=== PATIENT | female | born 1935 | race Caucasian/White ===

== ENCOUNTER → 2020-05-23 | Outpatient (CLI) | payer OTHER | LOC: SJCVCIMAG 05-19 07:55 | PROVIDERS: ATTEND Family Medicine | DX: I08.3 Combined rheumatic disorders of mitral, aortic and tricuspid valves (principal); R94.31 Abnormal electrocardiogram [ECG] [EKG]; R00.0 Tachycardia, unspecified; Z79.899 Other long term (current) drug therapy ==

== ENCOUNTER 2020-07-17 14:07 | Inpatient (IN) | payer OTHER ==
[~2020-07-17] VITALS: Ht 160 cm; Wt 68.9 kg
[2020-07-17 14:20] VITALS: BP 115/55
[2020-07-17 15:02] LABS: ABSOLUTE NEUTROPHILS 3.3 thou/uL (1.4-8.2); BASOPHILS 0.3 % (0.0-2.0); EOSINOPHILS 1.9 % (0.0-3.0); HEMATOCRIT 22.2 % (37.0-47.0); HEMOGLOBIN 7.3 gm/dL (12.0-15.0); LYMPHOCYTES 15.2 % (24.0-44.0); MCH 30.4 pg (26.0-34.0); MCHC 32.9 g/dL (28.0-37.0); MCV 92.5 fL (80.0-100.0); MONOCYTES 3.5 % (1.0-8.0); PLATELET COUNT 187 thou/uL (150-400); POLYS 79.1 % (36.0-66.0); RDW 21.4 % (10.5-14.5); WBC 4.1 thou/uL (4.0-11.0)
[2020-07-17 15:15] LABS: ANION GAP 5 mmol/L (7-16); BUN 25 mg/dL (7-18); CALCIUM 7.8 mg/dL (8.5-10.1); CHLORIDE 94 mmol/L (98-107); CO2 25 mmol/L (21-32); CREATININE 0.9 mg/dL (0.6-1.0); GLUCOSE 151 mg/dL (74-106); POTASSIUM 5.1 mmol/L (3.5-5.1); SODIUM 124 mmol/L (136-145)
[2020-07-17 15:25] LABS: ALBUMIN 1.5 g/dL (3.4-5.0); SGOT 39 U/L (15-37); SGPT 28 U/L (30-65); TOTAL BILIRUBIN 0.7 mg/dL (0.2-1.0); TOTAL PROTEIN 4.7 g/dL (6.4-8.2); TROPONIN-I <0.06 ng/mL (<0.06)
[2020-07-17 15:59] LABS: ANISOCYTOSIS 2+; PLATELET ESTIMATE NORMAL
[2020-07-17 17:26] VITALS: BP 118/49
[2020-07-17 18:02] VITALS: BP 126/50
[2020-07-17] MEDS ORDERED: FUROSEMIDE 20 M20 MG PO ×2 (20:22)
[2020-07-17] MEDS ORDERED: POTASSIUM20 PO (20:23)
[2020-07-17] MEDS ORDERED: LOPERAMIDE2 MG PO (20:24)
[2020-07-17] MEDS ORDERED: ELIQUIS5 MG PO (20:24)
[2020-07-18 02:30] VITALS: BP 114/52; BP 115/53
--- NOTE | 2020-07-18 05:00 | NUR ---
Pt. was admitted to the unit earlier during the change of shift. She is alert and oriented. Admission assessment is completed. She does not want to sign any admission papers until her daughter accompanies her. No c/o pain. Blood is infusing without difficulty. Up to the bedside comode with assistance of one.
--- NOTE | 2020-07-18 06:57 | EKG ---
[address] [address] ELECTROCARDIOGRAM REPORT Name: KATY RUFFIN Room #: 455-P ADM IN .R.#: [id number] Admission: 07/17/20 Attend Phys: Charlie Feliciano MD Discharge: Date of : 39 Report #: [id number] [facility] ED Test Date: 2020-07-17 Test Time: 15:55:37 Pat Name: KATY RUFFIN Department: Room: [facility] Gender: F Clinic Lead: CYNTHIA GREENE : 1935 Requested By: Shahzad Brewster Order Number: [id number] MD: Zan Ahmadi Measurements Intervals [place] Rate: 101 P: 73 FL: 147 QRS: 15 QRSD: 90 T: 43 QT: 328 QTc: 426 Interpretive Statements Sinus tachycardia No previous ECG available for comparison Electronically Signed On 07-18-2020 6:57:05 CDT by Zan Ahmadi [email or web address] <ELECTRONICALLY SIGNED> By: Zan Ahmadi MD, [facility] 07/18/20 0657 1555 1555 Zan Ahmadi MD, FACC /EPI
[2020-07-18 07:33] LABS: HEMATOCRIT 25.1 % (37.0-47.0); HEMOGLOBIN 8.2 gm/dL (12.0-15.0)
[2020-07-18 08:00] VITALS: BP 124/57
--- NOTE | 2020-07-18 10:21 | NUR ---
WOUND CONSULT; THE PATIENT IS ALERT AND ORIENTED X 3. THE PATIENT JUST FINISHED BREAKFAST. THE PATIENT SUFFERS WITH S/S CONSITANT WITH CHRONIC VENOUS ISSUFICENCY BILATERALLY WHICH IS WORSE ON THE RIGHT. SKIN WARM TO TOUCH ON THE RIGHT. DRY TO HARD AND FLAKY SKIN CHANGES BILATERALLY BUT WORSE ON THE RIGHT. THERE IS A WOUND TO THE ANTERIOR ANKLE 2 X 2 X 0.1 9 (SKIN TEAR LIKE) RECOMMENDATIONS; 1-A SLILVER FOAM FOR NOW, SECURE WITH A LIKE TUBIGRIP. 2-CONSULT DR MO FIERRO OR WOUND MANAGEMENT. DISCUSSED WITH CYNTHIA
--- NOTE | 2020-07-18 13:45 | NUR ---
WOUND CARE F/U; REC'D V/O FROM DR MO FIERRO TO APPLY TUBIGRIPS BILATERALLY. I APPLIED SIZE F. THE PATIENT HAD NO COMPLAINTS. SAID, "THEY FEEL GOOD," APPLIED FROM TOES TO BELOW THE KNEE. STAFF PRESENT.
--- NOTE | 2020-07-18 14:42 | NUR ---
CM REVIEWED CHART AND SPOKE WITH CARE TEAM. CM ATTEMTPED PC TO PT'S ROOM WITH NO ANSWER. CM CALLED PT'S DTR. SHE INDICATED THAT PT RESIDES ALONE IN A RANCH STYLE HOUSE WITH 2 STEPS TO ENTER THROUGH THE GARAGE AND 3-4 STEPS WITH HR IN FRONT. SHE INDICATED THAT PT HAD BEEN INDEPEDNENT WITH GAIT AND ADLS LEGISLATORS. SHE INDICATED NO DME, RECENT HH HX, OR SKILLED PLACEMENT. DTR INDICATED THAT PLAN WOULD BE FOR PT TO RETURN HOME ONCE MEDICALLY STABLE. DTR INDICATED THAT THEY WOULD BE RECEPTIVE TO POST ACUTE CARE STAY IF NEEDED UPON DC. CM FOLLOWING REGARDING DC PLANNING.
--- NOTE | 2020-07-18 15:33 | NUR ---
I agree with the ROOFING APPRENTICE assessment.
--- NOTE | 2020-07-18 15:42 | NUR ---
Assumed pt care at 7am.Pt in and out of bed to bsc with assist.Assessment completed.vss.Dr Feliciano here and order noted.Pt hgb today was 8.2 and stable.Pt tolerated meds and diet.Wound care nurse here,tubal steward/stewardess smoke room stocking applied to bilateral legs.Gentamycin ointment applied to legs as ordered.Pt went for us bilat.lower extremities and returned to room some minutes later. Dtr at bs at present visiting.Will continue to monitor.
[2020-07-18 16:00] VITALS: BP 125/58
[2020-07-18 19:50] VITALS: BP 115/55
--- NOTE | 2020-07-19 03:46 | NUR ---
UP ADLIB TO THE BEDSIDE COMMODE.ACEWRAP TO BILATERAL LOWER EXTREMITIES.DENIES NEEDS AT THIS TIME.POC CONTINUED.
--- NOTE | 2020-07-19 07:34 | HC ---
[facility] [place] [address] CONSULTATION Name: KATY RUFFIN Room #: 455-P ADM IN .R.#: [id number] Admission: 07/17/20 Attend Phys: Charlie Feliciano MD Discharge: Date of : 39 Report #: [id number] THIS REPORT FOR: cc: Charlie Feliciano MD, Neal A. MD McKittrick, Richard James MD ~ REASON FOR CONSULTATION: History of pancreatic cancer. HISTORY OF PRESENT ILLNESS: The patient is an 85-year-old female that I met in 01/2020 or 02/2020. 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 The patient called us yesterday, she was having progressive weakness and leg swelling and redness of her legs. She was sent to the Emergency Room. Here, she was found to be hyponatremic, had redness of her legs and also was anemic with a hemoglobin of 7.3. She was admitted. Today, the patient denies any fevers, chills, nausea or vomiting, though her appetite is not good. No blood in her urine or stool. Does have some chronic leg swelling, it has been worse for the last several months. Quite a bit of redness on her shins with also some crustiness. Also has loose bowels several times a day. PHYSICAL EXAMINATION: GENERAL: The patient appears her stated age. She is alert and oriented x3. VITAL SIGNS: Blood pressure is 126/50, O2 sat of 98%, respirations 16, pulse 86, temperature is 98.7. HEENT: Lips, which she reports is dry. No mucosal lesions. LUNGS: Clear. HEART: Regular rate. LYMPHATICS: No enlarged lymph nodes in the supraclavicular, cervical, axillary or inguinal region. ABDOMEN: Without masses, nontender. CHEST: Has a port in place. EXTREMITIES: Does have the red rash with some slight crusting, some thickened skin on both shins going on to the back of her legs bilaterally, tops of her feet are also slightly swollen. She has been using crad-mek-jsjmrki lotion at home. Do have the redness and quite a bit of dry skin and some slight swelling and chronic skin changes of both lower extremities. MOOD: She is alert and pleasant, conversant. NEUROLOGIC: Speech and thought pattern normal. Moving extremities. LABORATORY DATA: Lab work here is notable for hemoglobin 8.2 after transfusion, white count 4.1. Yesterday, her sodium was 124, AST was 39. Chest x-ray shows some right basilar atelectasis or scarring. [address] [address] CONSULTATION Name: AUGUSTINLLUVIAKATY C Room #: 455-P ADM IN M.R.#: [id number] Admission: 07/17/20 Attend Phys: Charlie Feliciano MD Discharge: Date of : 39 Report #: [id number] MEDICATIONS: At this time in the hospital currently include ceftriaxone. Note that at home, she had been on Eliquis, Tylenol, hydrocodone, EMLA cream, Medrol Dosepak, and Zofran. PAST MEDICAL HISTORY: Notable for the stage 4 pancreatic cancer diagnosis, also history of left tibial DVT in early 04/2020, also history of pneumonectomy for a lung cancer in 1997, history of colon cancer in 1995 with liver mets resected, no known recurrent disease, history of oophorectomy. ASSESSMENT AND PLAN: 1. Stage 4 pancreatic cancer, responding to recent therapy with scan 3 weeks ago showing decrease in disease and improvement in tumor marker. 2. Bilateral leg rash. Gemzar has approximately 30% incidence of rash described as lipodermatosclerosis-like rash. Abraxane has incidence of rash of 10-30%. Also, could be stasis changes. We will consult wound care for their thoughts. If lipodermatosclerosis unresolved, use topical steroid and leg wraps. We will defer to them. 3. Anemia, status post transfusion, improvement in hemoglobin. 4. History of deep venous thrombosis and left tibial vein. Should probably restart Eliquis. 5. History of lung cancer in 1997, not recurrent. 6. History of colon cancer in 1995, not thought to be recurrent. We will follow with you. <ELECTRONICALLY SIGNED> By: Trav Skaggs MD 07/19/20 0734 0820 [id number] Trav Skaggs MD /nt
[2020-07-19 08:17] VITALS: BP 116/51
[2020-07-19 12:08] LABS: CALCIUM 7.9 mg/dL (8.5-10.1); CREATININE 0.8 mg/dL (0.6-1.0); POTASSIUM 4.7 mmol/L (3.5-5.1)
--- NOTE | 2020-07-19 12:43 | NUR ---
PT ON IV ROCEPHIN PT GETTING WOUND CARE. CM TO FOLLOW INDICATED WITH DC PLANNING.
--- NOTE | 2020-07-19 19:18 | NUR ---
Assumed pt care at 7am.Assessment completed.vss.Pt in bed for all meals. Good appetite noted.Dr Feliciano and Shawna here,order noted.Drsg change done to rt ankle as ordered and wound picture taken and placed in chart.Drt here to visit,updates given.Pt up to bsc with minimal assist,voided without difficulty.No verbal c/o.Pt encouraged to call for assist as needed.Report off to fran rn.
[2020-07-19 19:27] VITALS: BP 122/53
--- NOTE | 2020-07-20 02:01 | NUR ---
PT CARE ASSUMED WITH PT IN BED WATCHING TV.PT IS A/O X4.PT IS UP TO BSC AND UP WITH X1 ASSIST.PT DENIED PAIN ,NAUSEA AND VOMITING.IV PORTACATH ON RT CHEST.AMMOINIUM LACTACTE APPLIED ON LOWER LEGS FOR DRY SKIN .WILL CONTINUE TO MONITOR POC
[2020-07-20 08:45] VITALS: BP 130/64
[2020-07-20 11:47] VITALS: BP 130/64
--- NOTE | 2020-07-20 11:48 | NUR ---
PHYSICIAN VISITED THIS AM. HE INDICATED THAT PT WILL LIKELY BE MEDICALLY STABLE TO DC HOME TOMORROW WITH HOME HEALTH SERVICES. CM MET WITH PT AND DTR AT BEDSIDE THIS DAY AND THEY ARE AWARE AND AGREEABLE. PT ASKED THAT REFERRAL BE SENT TO [facility] FOR POSSIBLE SERVICES UPON DC. REFERRAL SENT. CM FOLLOWING REGARDING DC PLANNING. PT HAS FWW FOR HOME USE.
--- NOTE | 2020-07-20 11:56 | NUR ---
ASSUMED PT CARE THIS AM. PT VSS, A&OX4. PATIENT PLEASANT AND COOPERATIVE WITH STAFF. PATIENT ABLE TO MAKE NEEDS KNOWN. UP TO BEDSIDE COMMODE. WOUND CARE COMPLETED WHEN GIVING MORNING MEDS THIS AM. DRAINAGE ON CURRENT DRESSING WAS DRIED. PATIENT TOELRATED WOUND CARE WELL. REPORTING NO NAUSEA. REPORTS CHRONIC TINGLING IN FINGERTIPS AND BOTTOM OF FEET. MEDICATIONS GIVEN WITHOUT ISSUE. ON ROOM AIR. REPORTING NO PAIN. FALL PRECAUTIONS ARE IN PLACE.TELEMETRY DISCONTINUED PER PHYSICIAN ORDER.
--- NOTE | 2020-07-20 17:05 | NUR ---
FAXED REFERRAL TO [facility] SPOKE WITH INTAKE THEY CAN ACCEPT AT OR.
[2020-07-20 18:17] VITALS: BP 132/64
[2020-07-20 19:00] VITALS: BP 128/56
--- NOTE | 2020-07-21 02:36 | NUR ---
ASSUMED CARE OF PT AT 1900. PT IS A/O X4 AND IS UP AD DAIJA IN ROOM TO BSC NEEDED. ROOM AIR. VSS. C/O VAGINAL BLEEDING. NOTIFIED PHOTOCOPY OPERATOR. AM LABS ADDED TO PLAN OF CARE FOR THIS AM. DENIES ANY C/O PAIN OR DISCOMFORT AT THIS TIME. FALL PRECAUTIONS IN PLACE, CALL LIGHT IS WITHIN REACH.
[2020-07-21 06:28] LABS: HEMATOCRIT 27.5 % (37.0-47.0); HEMOGLOBIN 9.1 gm/dL (12.0-15.0); MCH 30.9 pg (26.0-34.0); MCV 93.9 fL (80.0-100.0); RBC 2.93 mil/uL (4.20-5.00); RDW 20.2 % (10.5-14.5); WBC 6.1 thou/uL (4.0-11.0)
[2020-07-21 07:53] VITALS: BP 119/60
--- NOTE | 2020-07-21 08:05 | HC ---
[facility] [place] [address] CONSULTATION Name: KATY RUFFIN Room #: 455-P ADM IN M.R.#: [id number] Admission: 07/17/20 Attend Phys: Charlie Feliciano MD Discharge: Date of : 37 Report #: [id number] THIS REPORT FOR: cc: Charlie Feliciano MD, Neal A. MD Althoff,Santhosh Zamora MD ~ DATE OF SERVICE: 07/18/2020 CHIEF COMPLAINT: Lower extremity dermatitis and ulcer of the right leg. HISTORY OF PRESENT ILLNESS: This is an 85-year-old female patient who was admitted through the Emergency Department with complaints of generalized swelling and weakness. She has been undergoing chemotherapy, which began in March. She developed swelling in her legs and subsequent dermatitis and ulceration that have been progressive almost since that time. The patient does complain of some mild discomfort and some pruritus. PAST MEDICAL HISTORY: Positive for history of colon cancer and pancreatic cancer, currently undergoing active treatment. MEDICATIONS: Include furosemide, potassium, Eliquis, loperamide. SOCIAL HISTORY: Negative for alcohol or tobacco use. FAMILY HISTORY: Noncontributory. ALLERGIES: No known drug allergies. REVIEW OF SYSTEMS: CONSTITUTIONAL: The patient complains of generalized weakness. Denies focal weakness. Denies fever, chills or weight loss. NEUROLOGICAL: The patient denies focal weakness, numbness or tingling. EYES: The patient denies visual changes, redness, or drainage. ENT: The patient denies earache, nasal drainage, sore throat. CARDIOVASCULAR: The patient denies chest pain or palpitations or diaphoresis. PULMONARY: The patient denies cough or shortness of breath. GASTROINTESTINAL: The patient denies nausea, vomiting, diarrhea or abdominal pain. ORTHOPEDIC: The patient complains of pain, swelling, itching and some discomfort to bilateral lower extremities with ulceration on the right anterior ankle. Other systems in a 14-point review of systems are negative. PHYSICAL EXAMINATION: VITAL SIGNS: At this time include temperature 36.7, pulse 94, respiratory rate [address] [address] CONSULTATION Name: KATY RUFFIN [place] Room #: 455-P [facility] IN ..#: [id number] Admission: 07/17/20 Attend Phys: Charlie Feliciano MD Discharge: Date of : 37 Report #: [id number], blood pressure 124/57. GENERAL: This is a chronically ill-appearing female patient who appears to be in minimal distress. HEENT: Head normocephalic. NECK: Supple. LUNGS: Clear. HEART: Regular rhythm. ABDOMEN: Soft and nontender. EXTREMITIES: Demonstrate 2+ edema bilaterally. She has easily palpable distal pulses. She has moderate venous stasis dermatitis on both lower legs and feet. She has an ulceration that appears to be venous like on the anterior portion of the right ankle that is mildly tender. There is moderate crusting and loose skin surrounding. NEUROLOGIC: The patient is alert and oriented and appropriate. LABORATORY STUDIES: Include a sodium of 124, potassium 5.1, chloride 94, CO2 of 25, BUN 25, creatinine 0.9, glucose of 151, albumin is 1.5. White blood cell count 4.1, hemoglobin 7.3. CLINICAL IMPRESSION: 1. Venous stasis dermatitis, bilateral lower extremities. 2. Venous type ulceration to the right anterior ankle. 3. History of colonic and pancreatic cancer, currently undergoing active treatment with Dr. Skaggs. RECOMMENDATIONS: At this point in time, we will try stockings. We will see if we can manage her edema otherwise elevation of the skin. We will recommend AmLactin lotion to the lower legs and then gentamicin, Xeroform and a border foam to the open ulceration. We might consider wrapping with Kerlix and Kulwant, may also consider topical steroids that some of this may be in fact lipodermatosclerosis. I do appreciate greatly seeing her in consultation. We will follow closely. <ELECTRONICALLY SIGNED> By: Santhosh Matos MD 07/21/20 0805 1230 [id number] Santhosh Matos MD /nt
[2020-07-21] MEDS ORDERED: CEFDINIR300 MG PO (08:11)
--- NOTE | 2020-07-21 09:32 | NUR ---
FAXED DISCHARGE ORDERS AND SUMMARY TO [facility]. WILL CONFIRM THEY RECEIVED AND BEGIN SERVICES. [facility] P [phone]; FAX [phone]
--- NOTE | 2020-07-21 13:30 | NUR ---
ONGOING ASSESSMENT: AFTERING REVIEWING WITH CARE TEAM THE PT WILL D/C HOME WITH HH LUCERO UA RESULTS.
[2020-07-21 14:53] LABS: URINE BILIRUBIN NEGATIVE (Negative); URINE BLOOD 3+ (Negative); URINE GLUCOSE-RANDOM* TRACE (Negative); URINE KETONES NEGATIVE (Negative); URINE LEUKOCYTES-REFLEX TRACE (Negative); URINE NITRITE-REFLEX NEGATIVE (Negative); URINE PROTEIN (DIPSTICK) 3+ (Negative); URINE SPECIFIC GRAVITY >= 1.030 (1.005-1.035); URINE UROBILINOGEN 0.2 E.U./dl (0.2-1.0)
[2020-07-21 14:54] LABS: URINE CLARITY CLOUDY; URINE COLOR RED
[2020-07-21 14:58] LABS: BACTERIA-REFLEX 1-9 Few /HPF (None Seen); CASTS None Seen /LPF (None Seen); CRYSTALS None Seen /LPF (None Seen); SQUAMOUS 0-3 Few /LPF (0-3); URINE RBC >20 Many /HPF (0-2); URINE WBC-REFLEX 0-5 Rare /HPF (0-5)
--- NOTE | 2020-07-21 16:30 | NUR ---
ASSUMED PT CARE THIS AM. PT IS ALERT & ORIENTED X4. PT HAS R CHEST PORT. PT USES WALKER AND BEDSIDE COMMODE. COLLECT UA VIA CLEAN CATH AND STRAIGHT CATH HOWEVER STILL HAVE ACTIVE BLEEDING. SENT SAMPLE TO LAB. DID WOUND DRESSONG ON R ANTERIOR ANKLE AND BILATERAL LE. PT DAUGHTER AT THE BEDSIDE. PT SIGNED DISCHARGE FORMED AND EDUCATED AND INFORMED MEDS AND TO FOLLOW UP WITH THE DOCTOR. PT DAUGHTER WAS HERE DURING DISCHARGE. REMOVED R CHEST PORT. PT WAS DISCHARGED TODAY.
== END 2020-07-21 16:48 | disposition home health service (06) | DRG 811 ==
LOC: ER 14:07 → EROBS 17:22 → 4W 17:22 → EROBS 18:04 → 4W 18:29
PROVIDERS: Emergency Medicine; Nurse Practitioner Family; ADMIT Family Medicine; ATTEND Family Medicine
PROC: 30233N1 Transfusion of Nonautologous Red Blood Cells into Peripheral Vein, Percutaneous Approach (ICD-10-PCS; principal; 2020-07-18)
DX: D64.9 Anemia, unspecified (principal); E43 Unspecified severe protein-calorie malnutrition; C25.9 Malignant neoplasm of pancreas, unspecified; E87.1 Hypo-osmolality and hyponatremia; L97.319 Non-pressure chronic ulcer of right ankle with unspecified severity; L03.116 Cellulitis of left lower limb; L03.115 Cellulitis of right lower limb; I87.2 Venous insufficiency (chronic) (peripheral); R53.81 Other malaise; R31.9 Hematuria, unspecified; R21 Rash and other nonspecific skin eruption; Z85.038 Personal history of other malignant neoplasm of large intestine; Z86.718 Personal history of other venous thrombosis and embolism; Z85.118 Personal history of other malignant neoplasm of bronchus and lung; Z68.26 Body mass index [BMI] 26.0-26.9, adult
CPT/HCPCS: 10045

== ENCOUNTER 2020-08-29 13:55 | Emergency (ER) | payer OTHER ==
[~2020-08-29] VITALS: Ht 160 cm; Wt 69.8 kg
[~2020-08-29 13:55] MED LIST: CEFDINIR300 MG PO; ELIQUIS5 MG PO; FUROSEMIDE 20 M20 MG PO; LOPERAMIDE2 MG PO; POTASSIUM20 PO
[2020-08-29 14:34] LABS: URINE BILIRUBIN NEGATIVE (Negative); URINE BLOOD 3+ (Negative); URINE CLARITY CLEAR; URINE COLOR YELLOW; URINE GLUCOSE-RANDOM* NEGATIVE (Negative); URINE KETONES NEGATIVE (Negative); URINE LEUKOCYTES-REFLEX NEGATIVE (Negative); URINE NITRITE-REFLEX NEGATIVE (Negative); URINE PROTEIN (DIPSTICK) 3+ (Negative); URINE SPECIFIC GRAVITY 1.025 (1.005-1.035); URINE UROBILINOGEN 0.2 E.U./dl (0.2-1.0)
[2020-08-29 14:39] LABS: URINE RBC >20 Many /HPF (NONE SEEN)
[2020-08-29 14:40] LABS: BACTERIA-REFLEX 1-9 Few /HPF (None Seen); CASTS None Seen /LPF (None Seen); CRYSTALS None Seen /LPF (None Seen); SQUAMOUS None Seen /LPF (0-3)
[2020-08-29 14:55] LABS: BASOPHILS 1.2 % (0.0-2.0); EOSINOPHILS 1.4 % (0.0-3.0); HEMATOCRIT 24.2 % (37.0-47.0); HEMOGLOBIN 7.9 gm/dL (12.0-15.0); LYMPHOCYTES 52.5 % (24.0-44.0); MCH 30.4 pg (26.0-34.0); MCHC 32.8 g/dL (28.0-37.0); MCV 92.9 fL (80.0-100.0); MONOCYTES 7.9 % (1.0-8.0); PLATELET COUNT 385 thou/uL (150-400); RDW 18.4 % (10.5-14.5); WBC 5.3 thou/uL (4.0-11.0)
--- NOTE | 2020-08-29 14:56 | EKG ---
[address] [place] [address] ELECTROCARDIOGRAM REPORT Name: KATY RUFFIN [facility] [id number] Admission: 08/29/20 Attend Phys: Discharge: Date of : 37 Report #: [id number] [facility] ED Test Date: 2020-08-29 Test Time: 14:30:26 Pat Name: KATY RUFFIN Department: Room: Gender: F Flanging Operator: ana maria : 1935 Requested By: Monique Lamas Order Number: [id number] MD: Zan Ahmadi Measurements Intervals [place] Rate: 99 P: 78 OK: 159 QRS: 24 QRSD: 88 T: 59 QT: 334 QTc: 429 Interpretive Statements Sinus rhythm Compared to ECG 07/17/2020 15:55:37 Sinus tachycardia no longer present Electronically Signed On 08-29-2020 14:56:03 CDT by Zan Ahmadi [email or web address] <ELECTRONICALLY SIGNED> By: Zan Ahmadi MD, [facility] 08/29/20 1456 1430 1430 Zan Ahmadi MD, FACC /EPI
[2020-08-29 15:03] LABS: CALCIUM 8.2 mg/dL (8.5-10.1); POTASSIUM 4.5 mmol/L (3.5-5.1)
[2020-08-29 15:08] LABS: APTT 34.7 Seconds (24.5-32.8); INR 1.16; PROTIME 12.6 Seconds (10.5-12.1)
[2020-08-29 15:09] LABS: ALBUMIN 2.2 g/dL (3.4-5.0); TOTAL BILIRUBIN 0.5 mg/dL (0.2-1.0)
[2020-08-29] MEDS ORDERED: CEPHALEXIN500 MG PO (17:31)
[2020-08-29 18:15] VITALS: BP 145/57
== END 2020-08-29 18:27 | disposition home or self-care (01) ==
LOC: ER 13:55
PROVIDERS: Physician Assistant
DX: R31.9 Hematuria, unspecified (principal); D64.9 Anemia, unspecified; L03.116 Cellulitis of left lower limb; L03.115 Cellulitis of right lower limb; R22.41 Localized swelling, mass and lump, right lower limb; R22.42 Localized swelling, mass and lump, left lower limb; Z85.07 Personal history of malignant neoplasm of pancreas; Z85.038 Personal history of other malignant neoplasm of large intestine

== ENCOUNTER 2020-09-20 10:37 | Inpatient (IN) | payer OTHER ==
[~2020-09-20] VITALS: Ht 160 cm; Wt 73.5 kg
[~2020-09-20 10:37] MED LIST changes: +CEPHALEXIN500 MG PO
[2020-09-20 10:44] VITALS: BP 169/56
[2020-09-20 13:00] LABS: ABSOLUTE NEUTROPHILS 1.8 thou/uL (1.4-8.2); BASOPHILS 1.5 % (0.0-2.0); EOSINOPHILS 2.3 % (0.0-3.0); HEMATOCRIT 22.8 % (37.0-47.0); HEMOGLOBIN 7.6 gm/dL (12.0-15.0); LYMPHOCYTES 33.7 % (24.0-44.0); MCH 30.5 pg (26.0-34.0); MCHC 33.3 g/dL (28.0-37.0); MCV 91.6 fL (80.0-100.0); MONOCYTES 6.6 % (1.0-8.0); PLATELET COUNT 362 thou/uL (150-400); POLYS 55.9 % (36.0-66.0); RBC 2.49 mil/uL (4.20-5.00); RDW 18.4 % (10.5-14.5); WBC 3.1 thou/uL (4.0-11.0)
[2020-09-20 13:10] LABS: CALCIUM 7.9 mg/dL (8.5-10.1); CREATININE 1.1 mg/dL (0.6-1.0); POTASSIUM 4.9 mmol/L (3.5-5.1)
[2020-09-20 13:16] LABS: ALBUMIN 2.3 g/dL (3.4-5.0); TOTAL BILIRUBIN 0.7 mg/dL (0.2-1.0); TOTAL PROTEIN 5.8 g/dL (6.4-8.2)
[2020-09-20 13:58] LABS: ANISOCYTOSIS 2+
[2020-09-20 14:35] VITALS: BP 169/56
[2020-09-20 14:42] VITALS: BP 110/60
[2020-09-20 14:50] VITALS: BP 171/70
--- NOTE | 2020-09-20 15:32 | NUR ---
WOUND CARE CONSULT; THE PATIENT'S LEGS BILATERALLY HAVE LARGE BULLAE THAT ARE INTACT. THE SKIN ON EXTREMITIES BILATERALLY ARE HYPERPIGMENTED, WARM BUT NOT NOTICEABLY DIFFERENT COMPARED TO THE UPPER EXTREMITIES. INFLAMMATION IS PRESENT WITH SOME INDURATION. SOME TENDERNESS BUT THE PATIENT IS COMFORTABLE AT THIS TIME. RECOMMENDATIONS; -XEROFORM, ABD, KERLIX DRESSING ORDERS REC'D RN PRESENT.
[2020-09-20 17:47] VITALS: BP 155/66
[2020-09-20 19:22] VITALS: BP 175/78
--- NOTE | 2020-09-20 19:35 | NUR ---
Admitted patient from ER due to Bilat LE cellulitis at 1450; transferred to room safely. On room air. Vital signs stable. On MS, not on telemetry; no complains and signs of chest pain, crushing sensation and heaviness. Assisted in ADLs. With chest port, accessed in the ER- IV team informed thru voicemail. Continent of bowel and bladder. With consult to Dr Sanderson and Dr Clark; both informed thru answering service, a/w call back and rounds. Dr Alvarado informed re: pt's admission- informed him that pt does not have other orders; med rec done- for review; orders obtained for pain meds, for antibiotics- pt had rocephin at ER, will prescribed for pt tomorrow; no orders for IVF. Regular diet orders obtained- no nausea, no vomiting and no abdominal pain noted. With elevated BP noted- pt just got out of bed; rechecked BP-WNL. Admission assessment, history and education done. Admission forms at bedside to be signed. Wound nurse consult done- pt seen and examined by Wound nurse Lenny- dressing changed; photo taken. No complains of pain made during assessment. To continue monitoring patient.
[2020-09-21 01:01] VITALS: BP 145/64
--- NOTE | 2020-09-21 04:00 | NUR ---
ASSUMED CARE OF PT AT SHIFT CHANGE. PT IS AOX4 AND LETS NEEDS BE KNOWN. FALL PRECAUTION IN PLACE. PT REPORTED SOME LE PAIN; PRNS PROVIDED. PT DENIED NAUSEA OR SOA. ASSESSMENT CHARTED. BLE DRESSING INTACT. PT WAS ABLE TO GET COMFORTABLE AND SLEEP PART OF THE SHIFT. WILL CONTINUE TO MONITOR.
[2020-09-21 07:05] VITALS: BP 118/52
--- NOTE | 2020-09-21 10:36 | NUR ---
Nutrition: pt admitted with bilateral leg cellulitis, bullae. Wound care following. RD received consult to discuss strawberry supplements with pt. Hx metastatic pancreatic CA. Physician has documented malnutrition-defer. UBW reported as 135#, states current is up with fluid. Appetite has been and is reported as good. 50-60% of meals documented yesterday. pt would like to have ensure BID, will order. Protein/nutrition needs reviewed. Likely to D/C in the next few days on outpatient antibiotic therapy. Low nutrition risk.
--- NOTE | 2020-09-21 12:04 | NUR ---
PT ADMITTED RELATED TO CELLULITIS. CM REVIEWED CHART AND SPOKE WITH CARE TEAM. CM MET WITH PT AT BEDSIDE THIS DAY. PT APPEARED TO BE A&O X4. CM ROLE INTRODUCED. PT INDICATED THAT SHE RESIDES IN A HOUSE ALONE WITH 3 STEPS TO ENTER AND ALL NEEDS ON 1 LEVEL. 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 PT INDICATED THAT SHE HAS A CANE AND A FWW FOR HOME USE. PT INDICATED [facility]. PT INDICATED SHE IS TO START OP THERAPY ON FRIDAY AT LOCATION OFF [address]. PT INDICATED THAT HER DTR OR NEIGHBOR WITH TRANSPORT HER. CM TO FOLLOW INDICATED WITH DC PLANNING.
[2020-09-21 15:37] VITALS: BP 133/67
[2020-09-21 15:45] VITALS: BP 163/60
--- NOTE | 2020-09-21 19:13 | NUR ---
Assumed pt care this am, vs stable. Ambulates with a walker and has a steady gait. Pain is managed with medications. Wound care nurse came to treat wounds, bulla unroofed and dressed. Wound cultures were sent to the lab. POC followed with no signs of distress noted. Endorsed to the night nurse.
[2020-09-21 19:43] VITALS: BP 156/46
--- NOTE | 2020-09-22 03:52 | NUR ---
ASSUEMD CARE OF PT AT SHIFT CHANGE. PT IS AOX4 AND LETS NEEDS BE KNOWN. FALL PRECAUTION IN PLACE. PT REPORTED [place] PAIN AND WAS TREATED WITH PRNS. ASSESSMENT CHARTED. PT DENIED NAUSEA OR SOA. PT SLEPT PART OF THE SHIFT. WILL CONTINUE TO MONITOR.
[2020-09-22 04:03] VITALS: BP 136/45
[2020-09-22 05:21] LABS: HEMATOCRIT 22.5 % (37.0-47.0); HEMOGLOBIN 7.5 gm/dL (12.0-15.0); MCH 30.2 pg (26.0-34.0); MCHC 33.2 g/dL (28.0-37.0); MCV 91.2 fL (80.0-100.0); RBC 2.46 mil/uL (4.20-5.00); RDW 18.1 % (10.5-14.5); WBC 2.6 thou/uL (4.0-11.0)
[2020-09-22 05:33] LABS: CALCIUM 7.4 mg/dL (8.5-10.1); CREATININE 1.2 mg/dL (0.6-1.0); POTASSIUM 4.7 mmol/L (3.5-5.1)
--- NOTE | 2020-09-22 07:09 | HC ---
[facility] [place] [address] CONSULTATION Name: KATY RUFFIN Room #: 450-P ADM IN M.R.#: [id number] Admission: 09/20/20 Attend Phys: Charlie Feliciano MD Discharge: Date of : 39 Report #: [id number] THIS REPORT FOR: cc: Charlie Feliciano MD, Neal A. MD McKittrick, Richard James MD ~ DOC #: [id number] cc: MD Trav Coombs MD DATE OF SERVICE: 09/21/2020 REQUESTING PHYSICIAN: Charlie Feliciano MD REASON FOR CONSULTATION: Metastatic pancreatic cancer. HISTORY OF PRESENT ILLNESS: The patient is a very pleasant 85-year-old female with a history of metastatic pancreatic cancer since 01/2020. She has been receiving chemotherapy with Gemzar/Abraxane and responding very well. She had developed worsening bilateral lower extremity edema and the Gemzar was held beginning about 08/01/2020. She thinks finally maybe the last day or two or perhaps a week, it began to get better, though she had noticed in about the last week or so development of blisters that got larger, some of them had popped/broken. There is some redness around some of them. She had seen a lymphedema clinic therapist yesterday, Katey Marks, who had suggested that we have a wound care consult. We had her come to the Emergency Room and she is admitted too for IV antibiotics and to see Wound Care. Today, the patient denies any fevers, chills, nausea, vomiting, headache, arm swelling, bowel or bladder difficulties. Does have the legs swelling. She thinks it actually maybe a little bit better in the last couple days, earlier in the last several months that had been refractory to diuretics. She has been somewhat anemic. PAST HISTORY: Notable for the metastatic adenocarcinoma of the liver and the pancreas since about January. Her most recent CAT scan on 08/29 showed responsive stable disease. She also has a history of lung and liver metastasis. Also, had a history of DVT of the left tibial vein in 03/2020. She began Eliquis, though she had hematuria and that dose was decreased from 5 b.i.d. to the current dose of 2.5. She has a past right lobectomy for lung cancer in 1997, she had a past colon cancer in 1995 with liver mets, for which she received chemotherapy, had cryotherapy and resection. She also had a left oophorectomy in the past. SOCIAL HISTORY: She has a very supportive family. [facility] [address] [place] [address] CONSULTATION Name: DONITASWETHAKATY Room #: 450-P [facility] IN M.R.#: [id number] Admission: 09/20/20 Attend Phys: Charlie Feliciano MD Discharge: Date of : 37 Report #: [id number] LABORATORY DATA: Recent lab work here in the hospital currently include creatinine of 1.1, total bili at 0.7, albumin 2.3. C-reactive protein 45.6, elevated. White count 3.1, hemoglobin 7.6, MCV 91.6, platelets 362. Sed rate of 60. MEDICATIONS: Currently include ceftriaxone 1 gram daily, apixaban 2.5 b.i.d., potassium chloride 10 mEq daily, hydrocodone p.r.n., morphine p.r.n., loperamide p.r.n. PHYSICAL EXAMINATION: VITAL SIGNS: Recent height is 5 feet 3 inches or 160 cm, weight 162 pounds or 73.7 kilograms. She has a temperature of 99.2. MOOD: She is alert and pleasant, conversant. NEUROLOGICAL: Face is symmetrical. Oropharynx clear. Moving arms and legs appropriately, though legs somewhat slowly. The dressings in place. NECK: No enlarged lymph nodes in the supraclavicular, cervical, axillary region. ABDOMEN: No obvious mass. EXTREMITIES: Wrappings on the lower leg below the knee. The patient does have edema and redness up to mid thighs, almost the lower portion of her buttocks. IMAGING: This admit is none. ASSESSMENT AND PLAN: 1. Metastatic pancreatic cancer to the liver, responding to therapy. 2. Bilateral lower extremity edema, may be related to Gemzar, had been refractory to diuretics. May be beginning to improve. 3. Blistering rash of lower extremities, probably related to lymphedema. Note that cultures were drawn and antibiotics had begun. 4. History of tibial vein deep venous thrombosis. Continue low-dose Eliquis 2.5 because of history of hematuria. 5. History of right lung cancer, nonrecurrent. 6. History of colon cancer, nonrecurrent. 7. Protein calorie malnutrition. Dietitian checked with the patient, prefers strawberry supplements. 8, Anemia, multifactorial. We will continue monitoring. MD MACKENZIE Quintana/JOSHUA/YARELIS [facility] [address] [place] [address] CONSULTATION Name: KATY RUFFIN [place] Room #: 450-P ADM IN M.R.#: [id number] Admission: 09/20/20 Attend Phys: Charlie Feliciano MD Discharge: Date of : 37 Report #: [id number] <ELECTRONICALLY SIGNED> By: Trav Skaggs MD 09/22/20708 1 5 Trav Skaggs MD /nt
[2020-09-22 07:39] VITALS: BP 146/54
--- NOTE | 2020-09-22 11:29 | NUR ---
Received awake on bed. Due medications given as prescribed, able to swallow meds w/o difficulty. On MS, not on telemetry; no complains and signs of chest pain, crushing sensation and heaviness. Assisted in ADLs. On room air. On regular diet- tolerating well; no nausea, no vomiting and no abdominal pain noted. Continent of bowel and bladder, able to go to the toilet with standby assist; gait belt and walker. With R chest port- accessed; on IV antibiotics. Falls bundle in place. With bilateral leg wounds- dressing C/D/I; dressing changed by wound nurse; d/c photo taken by wound nurse. Elevated legs as ordered. No complains of pain made during assessment. To continue monitoring patient. Pt seen and examined by Dr Feliciano this AM; possible discharge this PM- CM informed.
[2020-09-22 12:15] VITALS: BP 146/54
--- NOTE | 2020-09-22 12:32 | NUR ---
CARE TEAM INDICATED THAT PT IS MEDICALLY STABLE TO DC HOME THIS DAY. PHYSICIAN ORDERED NURSING FOR WC UPON DC. PT HAD USED [facility] IN THE PAST. CM FAXED REFERRAL TO [facility]. AWAITING RESPONSE.
--- NOTE | 2020-09-22 12:47 | NUR ---
WOUND CARE F/U; D/C IS IMMENIENT. THE WOUND(S) SHOWS MUCH IMPROVEMENT SINCE ADMISSION. THE DISCHARGE ORDERS ARE BILATERAL LOWER EXTREMITIES; SILVADINE/MORPHINE CREAM/XEROFORM GAUZE/ABD/KERLIX,SECURE WITH MAIDA. KOMAL RASHID DID THE DRESSINGS TODAY. D/C PICS TAKEN. DISCUSSED WITH CYNTHIA
--- NOTE | 2020-09-22 15:59 | NUR ---
BPCI letter and preferred provider list provided to patient, lives in home setting
--- NOTE | 2020-09-26 08:28 | HC ---
[facility] [address] [address] CONSULTATION Name: KATY RUFFIN Room #: 450-P [facility] IN .R.#: [id number] Admission: 09/20/20 Attend Phys: Charlie Feliciano MD Discharge: 09/22/20 Date of : 37 Report #: [id number] THIS REPORT FOR: cc: Charlie Feliciano MD, Neal A. MD Stephens, Thad A. MD ~ DOC #: [id number] Germain Clark MD DATE OF SERVICE: 09/21/2020 WOUND CARE CONSULTATION PERSONAL PHYSICIAN: Charlie Feliciano. CHIEF COMPLAINT: Blistering cellulitis, bilateral lower extremities. HISTORY OF PRESENT ILLNESS: This is an 85-year-old white female with a previous history of venous insufficiency and edema, who states that approximately a month ago, she started having multiple small blisters on her legs with associated swelling. These over the past several days have steadily grown and started to rupture. The patient states that she has had increased erythema and pain associated with these blisters. The patient states the pain got worse and the blisters got so big she decided to go to the Emergency Department and was admitted to the hospital for cellulitis. The patient currently being treated for pancreatic cancer. The patient states she has never had any previous blisters such as these. The patient denies blisters in any other part of her body. PAST MEDICAL HISTORY: Significant for pancreatic cancer, colon cancer. CURRENT MEDICATIONS: Multiple, reviewed the patient's medication list. DRUG ALLERGIES: None. SOCIAL HISTORY: The patient does not smoke or drink alcohol. FAMILY HISTORY: Not pertinent to current medical condition. REVIEW OF SYSTEMS: CONSTITUTIONAL: The patient denies fevers or chills. NEUROLOGIC: The patient complains of overall generalized weakness, but no isolated weakness in arms or legs. EYES: No complaints. ENT: No complaints. CARDIOVASCULAR: The patient denies chest pain, palpitations, but does have chronic lower extremity edema, greater in the past several days. [facility] [address] [place] [address] CONSULTATION Name: AUGUSTINKATY Room #: 450-[facility] IN ..#: [id number] Admission: 09/20/20 Attend Phys: Charlie Feliciano MD Discharge: 09/22/20 Date of : 37 Report #: [id number] RESPIRATORY: The patient denies shortness of breath, cough or wheezes. GASTROINTESTINAL: The patient denies nausea, vomiting or abdominal pain. GENITOURINARY: The patient denies urgency or frequency. MUSCULOSKELETAL: No complaints. SKIN: There is a bullous cellulitis, bilateral lower extremities, left greater than right. PHYSICAL EXAMINATION: VITAL SIGNS: Temperature 37.3, pulse 94, respirations 16, BP 118/52. GENERAL: This is alert and oriented x 3, pleasant white female who is in no obvious distress. HEENT: Normocephalic, atraumatic. Mucous membranes are somewhat dry. Pupils are round. Sclerae white. NECK: Without JVD. LUNGS: Clear. HEART: Regular. ABDOMEN: Obese, soft, nontender. EXTREMITIES: Evaluation of the lower extremities reveals 2-3+ edema with multiple bullous lesions of serous fluid, left leg greater than right. There is increased erythema, warmth and tenderness to the legs themselves. Distal pulses are 2+. Bilateral heels are intact. NEUROLOGIC: Cranial nerves II-XII grossly intact. Motor and sensory are grossly intact. LABORATORY DATA: White count 3.1, hemoglobin 7.6. Sed rate 60. BUN 24, creatinine 1.1. C-reactive protein 45.6, albumin 2.3. Most recent venous Doppler showed no signs of deep venous thrombosis. IMPRESSION: 1. Bullous cellulitis, bilateral lower extremities, left greater than right. 2. History of venous insufficiency with edema. 3. Pancreatic cancer with generalized debility. PLAN: At the bedside the patient had all the bullous lesions ruptured and unroofed using forceps and scissors. The patient tolerated this well. Afterwards, the patient had the periwounds dressed with skin prep and then the patient had morphine, Silvadene cream placed over all the wounds covered with Xeroform, ABD, Kerlix, and [place]. The patient states this actually made her legs feel better. We will continue with the morphine, Silvadene cream twice daily with the above dressings. Make sure she elevates her legs as much as possible. We will maximize the patient's oral protein supplementation for healing. We will utilize physical and occupational therapy for strengthening. We will continue all other current medications. . Germain Clark MD [address] [address] CONSULTATION Name: KATY RUFFIN Room #: 450-P [facility] IN M.R.#: [id number] Admission: 09/20/20 Attend Phys: Charlie Feliciano MD Discharge: 09/22/20 Date of : 37 Report #: [id number] DANYA/GUNNAR/BHAVANA <ELECTRONICALLY SIGNED> By: Germain Clark MD 09/26/20 0828 [id number] Germain Clark MD /nt
== END 2020-09-22 18:32 | disposition home health service (06) | DRG 602 ==
LOC: ER 10:37 → 4W 13:45 → EROBS 13:45 → 4W 14:36
PROVIDERS: Physician Assistant; ADMIT Family Medicine; ATTEND Family Medicine
DX: L03.115 Cellulitis of right lower limb (principal); E43 Unspecified severe protein-calorie malnutrition; C25.9 Malignant neoplasm of pancreas, unspecified; C78.7 Secondary malignant neoplasm of liver and intrahepatic bile duct; L03.116 Cellulitis of left lower limb; R23.8 Other skin changes; S80.822A Blister (nonthermal), left lower leg, initial encounter; S80.821A Blister (nonthermal), right lower leg, initial encounter; D64.9 Anemia, unspecified; R53.81 Other malaise; L30.9 Dermatitis, unspecified; Z85.07 Personal history of malignant neoplasm of pancreas; Z85.038 Personal history of other malignant neoplasm of large intestine; Z86.718 Personal history of other venous thrombosis and embolism; Z85.118 Personal history of other malignant neoplasm of bronchus and lung; X58.XXXA Exposure to other specified factors, initial encounter; Y93.89 Activity, other specified; Y92.89 Other specified places as the place of occurrence of the external cause; Y99.8 Other external cause status; Z68.28 Body mass index [BMI] 28.0-28.9, adult; T45.1X5A Adverse effect of antineoplastic and immunosuppressive drugs, initial encounter
CPT/HCPCS: 10040

== ENCOUNTER → 2020-10-12 | Outpatient (CLI) | payer OTHER | LOC: HYPER 09:09 | PROVIDERS: ATTEND Emergency Medicine | DX: I89.0 Lymphedema, not elsewhere classified (principal); L97.822 Non-pressure chronic ulcer of other part of left lower leg with fat layer exposed; L97.811 Non-pressure chronic ulcer of other part of right lower leg limited to breakdown of skin; R60.0 Localized edema; I87.2 Venous insufficiency (chronic) (peripheral); L30.9 Dermatitis, unspecified; C78.7 Secondary malignant neoplasm of liver and intrahepatic bile duct; C78.00 Secondary malignant neoplasm of unspecified lung; C25.0 Malignant neoplasm of head of pancreas; E43 Unspecified severe protein-calorie malnutrition; R53.1 Weakness; Z85.038 Personal history of other malignant neoplasm of large intestine ==

== ENCOUNTER → 2020-10-19 | Outpatient (CLI) | payer OTHER | LOC: HYPER 08:34 | PROVIDERS: ATTEND Emergency Medicine | DX: I89.0 Lymphedema, not elsewhere classified (principal); L97.821 Non-pressure chronic ulcer of other part of left lower leg limited to breakdown of skin; L97.811 Non-pressure chronic ulcer of other part of right lower leg limited to breakdown of skin; R60.0 Localized edema; I87.2 Venous insufficiency (chronic) (peripheral); L30.9 Dermatitis, unspecified; C78.7 Secondary malignant neoplasm of liver and intrahepatic bile duct; C78.00 Secondary malignant neoplasm of unspecified lung; C25.0 Malignant neoplasm of head of pancreas; E43 Unspecified severe protein-calorie malnutrition; R53.1 Weakness; Z85.038 Personal history of other malignant neoplasm of large intestine ==